=== PATIENT | female | born 1995 | race African-American/Black ===

== ENCOUNTER 2022-08-04 22:06 | Day surgery (SDC) | payer OTHER ==
[2022-08-04 22:28] VITALS: BMI 28.3
[2022-08-04 23:59] LABS: Bilirubin Neg (Negative); Blood, Urine Negative (Negative); CAUTI Indications for Culture Pregnancy; Clarity Clear (Clear); Glucose, Urine (Dipstick) Normal (Negative); Ketone, Urine 5 mg/dL (Negative); Leukocyte 25 (Negative); Nitrite Negative (Negative); Protein, Urine (Dipstick) 15 mg/dl (Neg-Trace); pH, Urine 6.5 (5.0-9.0)
[2022-08-05 00:02] LABS: Urine Culture Reflex Yes Yes
[2022-08-05 00:13] LABS: Bacteria/HPF Rare-Few HPF (None Seen); RBC/HPF 0-3 HPF (0-3); Squamous Epithelial 0-3 HPF (0-3)
[2022-08-05] MEDS ORDERED: Morphine 4 MG/ML VIAL ONE (02:30)
[2022-08-05] MEDS ORDERED: Morphine 4 MG/ML VIAL IM SCH (03:00)
[2022-08-05] MEDS ORDERED: Promethazine HCl 25 MG/ML VIAL IM SCH (03:00)
== END 2022-08-05 03:03 | disposition home or self-care (01) ==
LOC: CSHLD/OP 22:06
PROVIDERS: ATTEND Student in an Organized Health Care Education/Training Program
DX: O47.1 False labor at or after 37 completed weeks of gestation (principal); O23.43 Unspecified infection of urinary tract in pregnancy, third trimester; N39.0 Urinary tract infection, site not specified; Z3A.37 37 weeks gestation of pregnancy
CPT/HCPCS: 81001; 87086; 96372; 99283; J2270; J2550

== ENCOUNTER 2022-08-05 10:38 | Inpatient (IN) | payer OTHER ==
[~2022-08-05 10:38] MED LIST: Bupivacaine/Epinephrine 0.25% 30 ML VIAL ONE
[2022-08-05] MEDS ORDERED: hydrALAZINE 20 MG/ML VIAL SLOW IVP PRN ×2 (11:15→20:27)
[2022-08-05] MEDS ORDERED: Ondansetron PF 4 MG/2 ML Vial IVP PRN ×3 (11:15→20:27)
[2022-08-05] MEDS ORDERED: Ibuprofen 800 MG TAB PO PRN (11:15)
[2022-08-05] MEDS ORDERED: Methylergonovine 0.2 MG/ML VIAL IM PRN (11:15)
[2022-08-05] MEDS ORDERED: NS w/ Oxytocin 30 units 500 ML IV SCH (11:15)
[2022-08-05] MEDS ORDERED: HYDROcodone/Acetaminophen 5/325 mg Tablet PO PRN ×4 (11:15→20:27)
[2022-08-05] MEDS ORDERED: Penicillin G Potassium 5 MILL.UNITS in Sodium Chloride 0.9% 100 ML IVPB SCH (11:15)
[2022-08-05] MEDS ORDERED: Misoprostol 200 MCG TAB PR PRN (11:15)
[2022-08-05] MEDS ORDERED: Promethazine HCl 25 MG/ML VIAL IM PRN ×3 (11:15→20:27)
[2022-08-05] MEDS ORDERED: Lidocaine 1% (PF) 30 ML VIAL SC PRN (11:15)
[2022-08-05] MEDS: Lactated Ringer's 1,000 ML IV SCH (11:17)
[2022-08-05] MEDS ORDERED: Penicillin G Potassium 5 MILL.UNITS VIAL ONE (11:24)
[2022-08-05 11:42] LABS: Hemoglobin 10.3 g/dL (12.0-15.5); Mean Corpuscular Hemoglobin 25.6 pg (27.0-33.0); Mean Corpuscular Volume 77.4 fl (81.6-98.3); Mean Platelet Volume 10.6 fl (7.4-10.4); Platelet Count 313 10x3/uL (150-450); Red Blood Cell (RBC) Count 4.03 10x6/uL (3.90-5.03); White Blood Cell (WBC) Count 9.1 10x3/uL (3.5-10.5)
[2022-08-05] MEDS ORDERED: Fentanyl 2 mcg/Bup 0.1% Cadd 100 ML ONE (11:50)
[2022-08-05 12:14] LABS: HBSAg Index 0.21 S/CO (0-0.99); Hep B Surf Ag Non-Reactive S/CO (NonReactive)
[2022-08-05 12:16] LABS: Syphilis Antibody Nonreactive (Nonreactive); Syphilis Antibody Index 0.03 S/CO (<1.00 Non-Reactive)
[2022-08-05] MEDS ORDERED: Acetaminophen 325 MG TAB PO PRN (12:59)
[2022-08-05] MEDS ORDERED: Lactated Ringer's 500 ML IV PRN (12:59)
[2022-08-05] MEDS ORDERED: Moisturizing Cream (Eucerin) 113 GM JAR TOP PRN (12:59)
[2022-08-05] MEDS ORDERED: diphenhydrAMINE 50 MG/ML VIAL IVP PRN (12:59)
[2022-08-05] MEDS ORDERED: Naloxone HCl 0.4 mg/ml Vial IVP PRN ×2 (12:59)
[2022-08-05] MEDS ORDERED: ePHEDrine Sulfate 50 MG/10 ML VIAL SLOW IVP PRN (12:59)
[2022-08-05] MEDS ORDERED: Fentanyl 2 mcg/Bupivacaine 0.1% Cassette 100 ML EPIDURAL SCH (13:00)
[2022-08-05] MEDS ORDERED: Communication Order-Pharmacy FS SCH (13:00)
[2022-08-05 13:31] VITALS: BMI 19.5
[2022-08-05 13:38] LABS: SARS-CoV-2 NAA Rapid Test Not Detected (NotDetected)
[2022-08-05] MEDS: Penicillin G 2.5 MILL.units 2.5 MILL.UNITS in Premix Bag 1 BAG IVPB SCH (14:53)
[2022-08-05] MEDS ORDERED: Boostrix 0.5 ML (Tdap) VIAL (>/=7 yrs of age) IM ONE (20:27)
[2022-08-05] MEDS ORDERED: Preparation H Ointment 28 GM TUBE PR PRN (20:27)
[2022-08-05] MEDS ORDERED: diphenhydrAMINE 25 MG CAP PO PRN (20:27)
[2022-08-05] MEDS ORDERED: Lanolin Ointment 7 GM TUBE TOP PRN (20:27)
[2022-08-05] MEDS ORDERED: Milk Of Magnesia 30 ML UDCUP PO PRN (20:27)
[2022-08-05] MEDS ORDERED: Benzocaine-Menthol 82.5 ML CAN TOP PRN (20:27)
[2022-08-05] MEDS ORDERED: Bisacodyl 10 MG SUPP PR PRN (20:27)
[2022-08-05] MEDS ORDERED: Ferrous Sulfate 325 MG TAB PO SCH (20:45)
[2022-08-05] MEDS: Docusate 100 MG CAP PO SCH (21:18)
[2022-08-05] MEDS: Ibuprofen 800 MG TAB PO SCH (21:18)
[2022-08-06] MEDS: Ibuprofen 800 MG TAB PO SCH ×2 (05:40→14:14)
[2022-08-06] MEDS: Ferrous Sulfate 325 MG TAB PO SCH ×2 (07:36→10:56)
[2022-08-06] MEDS: Penicillin G 2.5 MILL.units 2.5 MILL.UNITS in Premix Bag 1 BAG IVPB SCH (07:37)
[2022-08-06] MEDS: Lactated Ringer's 1,000 ML IV SCH (07:37)
[2022-08-06 07:53] VITALS: TEMP 98.5
[2022-08-06] MEDS ORDERED: Prenatal Vitamin 1 TAB PO SCH (09:00)
[2022-08-06] MEDS: Docusate 100 MG CAP PO SCH (09:14)
[2022-08-06 11:27] VITALS: BP 122/66
== END 2022-08-06 17:45 | disposition home or self-care (01) | DRG 807 ==
LOC: CSHLD/OP 10:38 → CSHLD 11:41 → CSHPP 20:00
PROVIDERS: ADMIT Student in an Organized Health Care Education/Training Program; ATTEND Student in an Organized Health Care Education/Training Program
PROC: 10E0XZZ Delivery of Products of Conception, External Approach (ICD-10-PCS; principal; 2022-08-05)
DX: O99.02 Anemia complicating childbirth (principal); Z37.0 Single live birth; D64.9 Anemia, unspecified; Z20.822 Contact with and (suspected) exposure to COVID-19; O99.824 Streptococcus B carrier state complicating childbirth; Z3A.37 37 weeks gestation of pregnancy; Z79.899 Other long term (current) drug therapy
CPT/HCPCS: 81001; 85027; 86780; 86850; 86900; 86901; 87086; 87340; 96372; 99283; J2270; J2540; J2550; J3490; J7120; U0002